=== PATIENT | male | born 1965 | race Caucasian/White ===

== ENCOUNTER → 2017-06-16 18:51 | Outpatient (CLI) | payer MEDICAID, SELFPAY | PROVIDERS: Family Provider Nurse Practitioner; PCP Nurse Practitioner; Visit Provider Otolaryngology | DX: H92.12 Otorrhea, left ear (principal) | CPT/HCPCS: 87070; 87075; 87076; 87077; 87186; 87205 ==

== ENCOUNTER 2017-09-03 13:33 | Emergency (ER) | payer MEDICAID, SELFPAY ==
[2017-09-03 13:34] VITALS: BP 118/80; PULSE 79; RESP 16; TEMP 36.8; O2SAT 94; BMI 24.0
--- NOTE | 2017-09-03 14:16 | VDLE_ITS ---
Reason For Study: LLE pain RIGHT LEFT CFV is compressible, spontaneous, phasic, GSV is normal. competent and demonstrates normal CFV is compressible, spontaneous, phasic, augmentation. competent, and demonstrates normal Procedure augmentation. Exam performed portable in ED. FV is compressible, spontaneous, phasic, The exam was diagnostic. competent and demonstrates normal A preliminary report was called and/or faxed augmentation. to ED & PTs PCP Emmy Vallejo [employer]. POP V is compressible, spontaneous, phasic, competent and demonstrates normal augmentation. T/P Trunk is compressible. PTV is compressible. LT PerV is compressible. Interpretation Summary There is no evidence of left lower extremity deep vein thrombosis. Left greater saphenous vein appears patent and compressible segmentally. Normal flow patterns right common femoral vein. Ordering Physician: Juan Limon Referring Physician: Emmy Vallejo Performed By: Nisha Hay RDCS, RVT
--- NOTE | 2017-09-03 16:13 | ED.DCSUM_ITS ---
- ER Visit Summary Date of Service: 09/03/17 Chief Complaint: Atraumatic left calf pain. History of Present Illness: The patient is a 51 M has medical history of prior TIA and spinal stenosis. Reportedly the patient since Friday has had left calf pain. Denies any fall or trauma. No fever. No swelling. No prior history of DVT or PE. No recent travel, surgery, immobilization or hospitalization. No chest pain or shortness of breath. Worse with walking. Pain is primarily in the calf. Physical Examination: Well-appearing middle-age male. Vital signs are stable afebrile. He does not look septic toxic. He is no acute distress. H EENT exam unremarkable. Neck nontender no lymphadenopathy. Lungs clear to auscultation bilaterally. Heart regular rhythm no murmur. Abdomen soft nontender. Moving all 4 extremities neurovascularly intact. The left calf is tender but there is no ecchymosis or bruising. No swelling. No cords. No edema. Achilles tendon is intact. He has full range of motion to the left hip , knee, ankle and foot. DP pulse is intact and palpable physically. I also did a Doppler and was able to hear the left dorsalis pedis pulse easily. Normal cap refill touch sensation left foot. Dorsi plantar flexion intact. There is no discoloration of the skin of the left lower extremity. Neurologic exam is normal. Test Results: Venous study in the left lower extremity shows no DVT. Emergency Department Course and Treatment: Repeat exam the patient is doing well at 1605. Again has a palpable DP pulse. And there is no change or abnormality of the left lower extremity other than the reproducible calf discomfort. Treatment Plan: Motrin for pain. Call and follow-up his primary care physician or return if something changes or worse. Disposition: Discharge Impression: Left calf pain secondary to muscular skeletal etiology This note was generated with [employer] dictation software. It may contain incorrect words, spelling, and punctuation that were not noted in review of the chart prior to signing ED Disposition - Plan for ED Patient: Chief Complaint: Lower Extremity Injury Referrals: Mercedez Frankel NP-C [Primary Care Provider] -
--- NOTE | 2017-09-03 16:13 | ED.DEP ---
ED Disposition - Plan for ED Patient: Disposition: Home or Assisted Living Chief Complaint: Lower Extremity Injury Instructions: ED Strain Muscle Ext Referrals: Mercedez Frankel NP-C [Primary Care Provider] - Additional Instructions: Motrin for pain. Warm soaks in the bathtub to relax the muscles. Follow-up with your primary care provider or return to ER feeling worse. Your ultrasound today showed no signs of a DVT.
[2017-09-03 16:42] VITALS: BP 111/84; PULSE 79; RESP 18; O2SAT 99
== END 2017-09-03 16:42 | disposition home or self-care (01) ==
PROVIDERS: Emergency Provider Emergency Medicine; Family Provider Nurse Practitioner Adult Health; PCP Nurse Practitioner Adult Health
DX: M79.662 Pain in left lower leg (principal); Z86.73 Personal history of transient ischemic attack (TIA), and cerebral infarction without residual deficits; Z72.0 Tobacco use; Z79.899 Other long term (current) drug therapy
CPT/HCPCS: 93971; 99283

== ENCOUNTER 2018-04-05 14:24 | Observation (INO) | payer MEDICAID, SELFPAY ==
[2018-04-05] VITALS (9 sets, daily range): BP systolic 118–152; BP diastolic 72–91; PULSE 66–84; RESP 12–17; TEMP 36.6–36.8; O2SAT 96–98; BMI 25.2; BMI 24.7
[2018-04-05 14:35] LABS: Bedside Glucose 85 mg/dL (70-110)
--- NOTE | 2018-04-05 14:38 | RAD_ITS ---
STUDY: X-RAY CHEST REASON FOR EXAM: Male, 52 years old. Chest pain TECHNIQUE: Frontal view of the chest COMPARISON: 07/25/2016 FINDINGS: The lungs are clear. There are no pleural effusions. There is no pneumothorax. The heart is normal in size. The visualized osseous structures are within normal limits. RAD/Chest 1 View (Portable) IMPRESSION: No acute thoracic pathology. Electronically Signed: Thien Montes, at 15:36 EST Tel , Service support ,
--- NOTE | 2018-04-05 14:38 | EKG12_ITS ---
Test Reason : NEURO S/SX Blood Pressure : / mmHG Vent. Rate : 077 BPM Atrial Rate : 077 BPM P-R Int : 164 ms QRS Dur : 082 ms QT Int : 370 ms P-R-T Axes : 066 057 062 degrees QTc Int : 418 ms Normal sinus rhythm Normal ECG Confirmed by ANALIA GUNTER, YURIY ([id number]), order editor SIMON AVELAR ([id number]) on 04/07/2018 5:07:46 PM Referred By: UMESH Confirmed By:YURIY HELMS MD
--- NOTE | 2018-04-05 14:39 | CT_ITS ---
STUDY: CT BRAIN WITHOUT CONTRAST REASON FOR EXAM: Male, 52 years old. Right leg weakness, left facial numbness, neurological changes RADIATION DOSAGE (If Supplied By Facility): CTDIvol = ( 44.99 ) mGy, DLP = ( 762.36 ) mGycm TECHNIQUE: Transaxial CT imaging of the brain was performed without administration of intravenous contrast material. Individualized dose optimization techniques were used for this CT. COMPARISON: December 09, 2014 FINDINGS: Ventricles: Normal for patient's age. White matter and Cortex: Normal appearance of the white matter tracts. Normal appearance of the cortex. Stable old lacunar infarct versus perivascular space in the right parietal lobe. Basal ganglia and Thalami: Normal in appearance. Brainstem: Normal in appearance. Cerebellum: Normal in appearance. Vascular: No significant abnormalities. No evidence of acute hemorrhage. No evidence of acute ischemia. No evidence of mass effect. Soft tissues: Unremarkable. Bones: Unremarkable. Sinuses: Unremarkable. Partial opacification of the right mastoid air cells with chronic changes in the surrounding bone. CT/Brain/Head without Contrast IMPRESSION: No acute intracranial abnormalities. 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 Electronically Signed: Gina Navarro MD at 16:16 EST Tel Direct: [phone], Service support ,
--- NOTE | 2018-04-05 14:39 | ED.VISSUMM ---
- ER Visit Summary Date of Service: 04/05/18 Chief Complaint: [] Facial droop slurry speech right arm and leg weakness this morning History of Present Illness: The patient is a 52 M [] history for at least 3 TIAs that cause residual left facial droop that is worse today, also history of lumbar back pain that causes diffuse leg weakness, per the patient and his apparently this morning he had an episode where his right upper extremity lower extremity felt weak and numb he dropped a coffee cup, he also complained of some facial numbness as well he has intermittent complaints like this in the past per the he otherwise was at his baseline she had just completed third shift work and come home to sleep, later on this afternoon he woke her and said the symptoms seem to intensify and he was brought to the hospital, he scheduled to start a job building [employer] tomorrow he denies chest pain abdominal pain no fever no cough normal bowel bladder habits He has not seen a neurologist in some time he indicates the only medication he is on his doxycycline for some type of left ear ailment Physical Examination: [] 148/90 General, no distress resting comfortably HEENT is generally unremarkable, he does have a left facial droop per the part of that droop is old it seems more prominent and he also seems to have a slurred of speech that is not usually present there is very subtle The neck is supple no adenopathy Cardiovascular, regular rate and rhythm Lungs, clear bilateral Abdomen, soft nontender Extremities, no clubbing cyanosis or edema he has intermittent jerking when you move his lower extremities that is baseline for him, he has no motor or sensory weakness, he has chronic sensory deficits in his legs related to lumbar back disease and the believes he has a foot drop involving 1 of his legs, he is able to hold his arms and legs up for the normal counts Neurologic, awake alert answering questions appropriately moving all 4 extremities see above, his NIH would be about 1 or 2 related to the facial droop and the other complaints Test Results: [] Emergency Department Course and Treatment: [] Some of the patient's complaints are chronic some appear to be exacerbated and new all the above screening labs EKG head CT are obtained, EKG shows a sinus rhythm nothing acute His screening labs are all generally unremarkable, we are trying to determine the status of the final CT report, to my review the CT shows nothing acute, the and patient report his last stroke/TIA they believe was at [facility] in 2010 or 2011 but there is no reports that I can access to the computer, his exam remains as above no changes, he indicates again he feels weak in the right arm and leg given all the above and his complaints I have asked the hospitalist see him for further management the final CT report on the chart when it is available and reviewed by the admitting service Treatment Plan: [] Disposition: [] Admit stable Impression: [] Possible stroke, left facial droop right upper and lower extremity weakness history of prior TIA stroke in the past This note was generated with [employer] dictation software. It may contain incorrect words, spelling, and punctuation that were not noted in review of the chart prior to signing ED Disposition - Plan for ED Patient: Chief Complaint: Weakness Referrals: Mercedez Frankel NP-C [Primary Care Provider] -
[2018-04-05] MEDS: 0.9% Normal Saline 1,000 ML 30 ML IV (14:48)
[2018-04-05 15:02] LABS: Absolute Lymphocyte Count 3.19 X10^3/ul (0.83-4.51); Absolute Neutrophil Count 4.8 X10^3/uL (2.0-7.7); Basophil# 0.07 X10^3/uL; Basophil% 0.8 % (0-1); Eosinophil# 0.23 X10^3/uL; Eosinophils% 2.6 % (0-5); Hematocrit 44.7 % (40-54); Hemoglobin 14.6 g/dl (13.0-16.5); Lymphocyte # 3.19 X10^3/ul (4.0); Lymphocyte % 36.2 % (19-41); Mean Corp Hgb Conc 32.7 g/gl (32-36); Mean Corpuscular Hgb 29.6 pg (27.0-32.0); Mean Corpuscular Volume 90.5 fL (80-94); Mean Platelet Vol. 11.5 fl (6.2-12.0); Monocyte# 0.51 X10^3/uL; Monocyte% 5.8 % (0-10); Neutrophil % 54.4 % (47-70); Platelet Count 211 K/mm3 (150-450); RBC Distribution Width CV 14.3 % (11.6-14.6); Red Blood Count 4.94 M/mm3 (4.6-6.2); White Blood Count 8.8 K/mm3 (4.4-11.0)
[2018-04-05 15:04] LABS: POSITIVE COUNT NO; POSITIVE DIFFERENTIAL NO; POSITIVE MORPHOLOGY NO
[2018-04-05 15:19] LABS: Anion Gap 8 (5-15); BUN 6 mg/dL (7-18); BUN/Creat Ratio 7.9 RATIO (10-20); Calcium,Total 8.8 mg/dL (8.5-10.1); Chloride 107 mmol/L (98-107); Creatinine, Serum 0.76 mg/dL (0.70-1.30); EST Glomerular Filtration Rate 115 mL/min (>60); Est Glom Filt Rate - Afr Amer 139 mL/min (>60); Estimated Creatinine Clearance 118.73 ml/min; Glucose 84 mg/dL (74-106); Potassium 4.1 mmol/L (3.5-5.1); Sodium Level 140 mmol/L (136-145)
--- NOTE | 2018-04-05 16:33 | HP.PCM_ITS ---
Problem List (1) CVA (cerebral vascular accident) Status: Suspected Qualifiers: CVA mechanism: unspecified Qualified Code(s): I63.9 - Cerebral infarction, unspecified History of Present Illness Date of Admission: 04/05/18 Chief Complaint: right sided weakness amd left facial droop The patient is a 52 year old M presents with a one day history of right sided weakness and left facial droop that occurred today. He was in a normal state of health previously. No new stressors. Had similar episodes when he was diagnosed with TIA back in 2009. No headache.[] Past Medical History Past Medical History (Chronic Problems): Chronic Problems Primary lateral sclerosis (Chronic) History of TIA (transient ischemic attack) (Chronic) Depression (Chronic) Tobacco use (Chronic) Chronic pain syndrome (Chronic) Medical History: Medical History (Last Updated 04/05/18 @ 16:32 by Francis Silva DO) Cervical vertebral fusion M43.22 Spinal stenosis M48.00 TIA (transient ischemic attack) G45.9 tens unit placment Chronic pain G89.29 Allergies ciprofloxacin [From Cipro] Allergy (Verified 04/05/18 14:26) Hives tree nut Allergy (Verified 04/05/18 14:26) Shortness of breath Home Medications: Ambulatory Orders Medication Instructions Recorded Doxycycline 100 mg PO DAILY 04/05/18 Surgical History: noncontributory, - Psychiatric History: - - Has had prior suicidal ideation Lives: Spouse/ Significant Other Smoking Status: Heavy Smoker (>10/day) Tobacco Use: Cigarettes Alcohol: None Drugs: None - *Family History Maternal History Items: - - No stroke Review of Systems Constitutional: Denies: Anorexia, Chills, Fever Eyes: Denies: Blurred vision, Double vision HEENT: Denies: Head Aches, Sinus Congestion, Sinus Drainage Cardiovascular: Denies: Chest Pain, Palpitations Respiratory: Denies: Cough, Shortness of breath at rest, Sputum production Gastrointestinal: Reports: Abdominal Pain, Diarrhea, Nausea. 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 Denies: Anxiety, Depression Endocrine: Denies: Change in Body Habitus, Heat/ Cold Intolerance Hematologic/ Lymphatic: Denies: Easy Bruising, Easy Bleeding, Hx of blood clot Comment: A 10 point review of systems were negative except as mentioned in the history of present illness and the other review of systems. VTE Information - Inpt Only VTE Present on Admission: No VTE Mechan Device Prophylaxis: None VTE Pharm Prophylaxis ordered?: Yes Patient Problems: Active and Suspected Problems CVA (cerebral vascular accident) (Suspected) - Physical Exam General: Alert, Cooperative, No apparent distress, Well developed, Well nourished HEENT: Atraumatic, PERRLA, EOMI, Normocephalic Oral: Moist Mucosa, - - Appears to be thrush on his tongue. Unable to visualize any thrush in his posterior pharynx over on his palate. Dentures are in place. Neck: No Nodes, Thyroid Normal Size and Texture Lungs: Clear to auscultation, Normal air movement, No rhonchi, No wheeze Cardiovascular: Regular rate, Regular Rhythm, Normal S1, Normal S2, No murmurs Abdomen: Bowel Sounds Present, Soft, Non Tender, Non-Distended Extremities: No edema, No Calf Tenderness Skin: No rashes, No breakdown Musculoskeletal: No Tenderness to Palpation of Joints or Extremities, No Muscle Wasting Neurological: Cranial nerves II-XII grossly intact, Neuro grossly intact, Coordination normal, - - Strength 5 out of 5 in upper extremities and L4-5 in the lower extreme is bilaterally. Psych/Mental Status: Normal Affect, Anxious Vital Signs Temp Pulse Resp BP Pulse Ox 36.6 C 81 12 152/85 H 96 04/05/18 14:25 04/05/18 16:25 04/05/18 16:25 04/05/18 16:25 04/05/18 16:25 Oxygen Delivery Method Room Air Weight: 80 kg Body Mass Index (BMI) 25.2 Laboratory Tests Past 24 Hrs 04/05/18 04/05/18 14:45 14:45 WBC 8.8 RBC 4.94 Hgb 14.6 Hct 44.7 MCV 90.5 MCH 29.6 MCHC 32.7 RDW 14.3 RDW Differential 47.0 H Plt Count 211 MPV 11.5 Immature Gran % (Auto) 0.200 Neut % (Auto) 54.4 Lymph % (Auto) 36.2 [place] % (Auto) 5.8 Eos % (Auto) 2.6 Baso % (Auto) 0.8 Absolute Neuts (auto) 4.8 Absolute Lymphs (auto) 3.19 Total Counted Not Reportable Sodium 140 Potassium 4.1 Chloride 107 Carbon Dioxide 25.0 Anion Gap 8 BUN 6 L Creatinine 0.76 Estim Creat Clear Calc 118.73 Est GFR (MDRD) Af Amer 139 Est GFR (MDRD) Non-Af 115 BUN/Creatinine Ratio 7.9 L Glucose 84 Calcium 8.8 Troponin I < 0.015 POC Glucose 04/05/18 14:31 POC Glucose 85 Clinical Impression(s) from Imaging Studies Chest X-Ray 04/05/18 14:38 IMPRESSION: No acute thoracic pathology. Electronically Signed: Thien Montes, at 15:36 EST Tel , Service support , Brain CT 04/05/18 14:39 IMPRESSION: No acute intracranial abnormalities. 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 Electronically Signed: Gina Navarro MD at 16:16 EST Tel Direct: [phone], Service support , Assessment/Plan 1. Suspected acute stroke Will undergo stroke workup with an MRI of the brain, MRA of the head and neck, 2D echocardiogram, neurology consultation, bedside swallow evaluation, physical and occupational therapy evaluate and treat. He will be started on aspirin empirically Concern is that his exam is inconsistent. Patient is able to demonstrate no left facial droop when he smiles but when not asked to do that his immediately has a left facial droop. Concern is for either conversion disorder psychosomatic disorder or even fictitious. Patient denies any new emotional stressors in his life. I did express to he and his that stroke is will rule out but my concern is that his consistent and then may be another etiology. I do not feel that this is a migraine equivalent as he is having no headache whatsoever at this time. 2. Abdominal pain and diarrhea Is been going on for months. During his patient may be having gastritis or even peptic ulcer disease No red flags at this time I did recommend starting him on PPI therapy. Previously, he was on ranitidine as needed. I recommend doing well with H2 alicia and is having him on daily proton pump inhibitor for now I did recommend outpatient gastroenterology follow-up 3. DVT prophylaxis with Lovenox Code Visit OBSV E&M: 79692 Initial observation care L3
--- NOTE | 2018-04-05 16:50 | ECHOD_ITS ---
Reason For Study: TIA/CVA Procedure This was a 2D Doppler, Color Flow transthoracic echocardiogram. Exam performed portable in patient room. Left Ventricle Normal LV size. Left ventricular systolic function is normal. The estimated ejection fraction is 55 %. Stage 1 diastolic dysfunction. No regional wall motion abnormalities noted. Right Ventricle Normal right ventricle. Normal systolic function. Atria Normal left atrium. Normal right atrium. Mitral Valve Normal mitral valve. Mild (1+) eccentric mitral valve insufficiency. Tricuspid Valve Normal tricuspid valve. Mild (1+) tricuspid valve insufficiency. Aortic Valve Trisinus/trileaflet aortic valve. Pulmonic Valve The pulmonic valve is not well visualized. Great Vessels Normal aortic root. The pulmonary artery is normal size. Normal inferior vena cava. Pericardium/Pleural No pericardial effusion. MMode/2D Measurements & Calculations LVIDd: 5.1 cm IVSd: 0.93 cm Ao root diam: 3.6 cm LVIDs: 3.3 cm LVPWd: 0.99 cm RVDd: 3.5 cm FS: 35.3 % LAV(MOD-bp): 52.1 ml LA A4 area: 16.8 cm2 LA dimension(2D): 3.4 cm LAV(MOD-bp) Indexed: 26.4 ml/m2 LAV(MOD-sp2): 55.9 ml LAV(MOD-sp4): 42.3 ml RA A4 area: 14.3 cm2 Doppler Measurements & Calculations MV E max marcus: 63.3 cm/sec Lat Peak E' Macrus: 14.0 cm/sec Med Peak E' Marcus: 8.0 cm/sec MV A max marcus: 48.0 cm/sec E/E' lat: 4.5 E/E' med: 7.9 MV E/A: 1.3 Ao V2 max: 107.3 cm/sec LV V1 max: 84.0 cm/sec PA V2 max: 100.9 cm/sec Ao max P.6 mmHg LV V1 max P.8 mmHg TR max marcus: 220.7 cm/sec TR max P.5 mmHg Interpretation Summary Normal LV size. Left ventricular systolic function is normal. The estimated ejection fraction is 55 %. Stage 1 diastolic dysfunction. Mild (1+) tricuspid valve insufficiency. Ordering Physician: Francis Silva Referring Physician: Mercedez Pollard Performed By: Nisha Hay RDCS, RVT
[2018-04-05] MEDS: Aspirin 325 MG Tablet PO (18:08)
[2018-04-05] MEDS: Pantoprazole Sodium 40 MG Tablet PO (18:08)
[2018-04-05] MEDS: NYSTATIN 500,000 UNIT/5 ML UDC 500000 UNIT PO ×2 (19:14→21:31)
[2018-04-05] MEDS: Gabapentin 300 MG Capsule PO (21:31)
[2018-04-06] VITALS (11 sets, daily range): BP systolic 110–122; BP diastolic 62–79; PULSE 64–90; RESP 16; TEMP 36.6–36.8; O2SAT 94–96; BMI 24.7
[2018-04-06] MEDS: Enoxaparin 40 MG/0.4 ML Syringe SC (00:40)
[2018-04-06 06:36] LABS: Cholesterol 123 mg/dL (200); High Density Lipoprotein 37 mg/dL; Triglycerides 85 mg/dL; Very Low Density Lipoprotein 17 mg/dL (5-40)
[2018-04-06] MEDS: Aspirin 81 MG TAB.CHEW PO (07:54)
--- NOTE | 2018-04-06 07:59 | MRI_ITS ---
STUDY: MRI BRAIN WITHOUT CONTRAST REASON FOR EXAM: Male, 52 years old. CVA. Right-sided weakness, facial droop. TECHNIQUE: Standardized multiplanar fat and water weighted pulse sequences were obtained. COMPARISON: 10/29/2010, CT brain 04/05/2018. FINDINGS: There is no restricted diffusion or territorial infarct. There is no evidence of mass or hemorrhage. Normal size of the ventricles and extra-axial spaces for the patient's age. Normal white matter tracts of the supratentorial brain. Normal bilateral basal ganglia. Normal thalami. There is no extra-axial fluid accumulation. Normal sella turcica, pituitary gland, infundibular stalk, optic chiasm and hypothalamus. Normal tectal plate and pineal gland. Normal midbrain, [place] and medulla. Normal cerebellum. Normal basal cisterns. The patient is status post right mastoidectomy. Normal bilateral internal auditory canals. No demonstrated orbital abnormality, within the constraints of a routine brain study. Normal visualized paranasal sinuses. There is rightward nasal septal deviation. Normal calvarium and skull base. Normal visualized soft tissue structures. MRI/Brain without Contrast IMPRESSION: 1. No acute process. 2. Nasal septal deviation. 3. Status post right mastoidectomy. Electronically Signed: Renae Coy MD at 16:31 EST Tel , Service support ,
--- NOTE | 2018-04-06 07:59 | MRI_ITS ---
STUDY: MRA NECK WITH AND WITHOUT CONTRAST REASON FOR EXAM: Male, 52 years old. CVA, right-sided weakness, facial droop. TECHNIQUE: 3-D [id number] (TOF) imaging was performed in an 1.5 T MRI scanner. 8 ml of Gadavist was administered for the contrast enhanced images. COMPARISON: None. FINDINGS: RIGHT CAROTID ARTERIES: Normal right common carotid artery (CCA). Normal right common carotid bulb. Normal origin of the right internal carotid (ICA) artery without a significant stenosis. Normal visualized cervical portion of the right internal carotid artery. Normal origin of the right external carotid artery (ECA). LEFT CAROTID ARTERIES: Normal left common carotid artery (CCA). Normal left common carotid bulb. Normal origin of the left internal carotid (ICA) artery without a significant stenosis. Normal visualized cervical portion of the left internal carotid artery. Normal origin of the left external carotid artery (ECA). VERTEBRAL ARTERIES: Normal antegrade flow within the bilateral vertebral artery without a significant stenosis. MRI/MRA Neck WITH and W/O Contrast IMPRESSION: Normal bilateral cervical carotid and vertebral arteries. Electronically Signed: Renae Coy MD at 16:50 EST Tel , Service support ,
--- NOTE | 2018-04-06 08:00 | MRI_ITS ---
STUDY: MRA OF THE HEAD WITHOUT CONTRAST REASON FOR EXAM: Male, 52 years old. CVA right-sided weakness facial droop. TECHNIQUE: 3-D [id number]-[id number] (TOF) imaging was performed with MIPs. The study was performed unenhanced. COMPARISON: 10/29/2010. FINDINGS: Normal bilateral petrous carotid arteries. Normal right cavernous carotid artery with a normal supraclinoid bifurcation. Normal left cavernous carotid artery with a normal supraclinoid bifurcation. Normal right A1 segments of the anterior cerebral artery. Normal left A1 segments of the anterior cerebral artery. Normal intact anterior communicating artery (ACOM). Normal bilateral A2 segments of the anterior cerebral arteries. Normal right M1 and M2 segments of the middle cerebral arteries, with a normal M1 bifurcation. Specifically, no aneurysm is demonstrated in the M1 segment of the right middle cerebral artery. There is minimal ectasia or obliquity of the origin of a proximal M1 branch projecting inferiorly and anteriorly, which may produce the appearance of an aneurysm. Normal left M1 and M2 segments of the middle cerebral arteries, with a normal M1 bifurcation. There is non-visualization of the right posterior communicating artery (PCOM). Normal left posterior communicating artery (PCOM). Normal bilateral vertebral arteries. Normal basilar artery with a normal basilar bifurcation. The visualized bilateral superior cerebellar (SCA) arteries are normal. Normal bilateral P1, P2 and visualized P3 segments of the posterior cerebral arteries. There is no demonstrated aneurysm of the [place]. There is no major vessel occlusion or significant stenosis. MRI/MRA Head ONLY without Contrast IMPRESSION: Essentially normal MRA of the head. No evidence of aneurysm, although there is minimal prominence of the origin of the proximal M1 branch. Electronically Signed: Renae Coy MD at 16:41 EST Tel , Service support ,
[2018-04-06] MEDS: NYSTATIN 500,000 UNIT/5 ML UDC 500000 UNIT PO (09:31)
[2018-04-06] MEDS: Pantoprazole Sodium 40 MG Tablet PO (09:33)
--- NOTE | 2018-04-06 09:34 | NURSING ---
PT/OT here to see pt.
--- NOTE | 2018-04-06 12:38 | CON.PCM_ITS ---
Problem List (1) TIA (transient ischemic attack) Status: Acute Reason for Consult Date of Consultation: 04/06/18 Reason for Consultation: Right sided weakness, facial droop History of Present Illness: The patient is a 52 year old M with PMH TIA (last one around 2009 per ), H/O cervical fusion, low back pain, tobacco abuse, ? H/O PLS admitted with acute onset right sided weakness with facial droop. Per patient he woke up yesterday (04/05/18), was normal but later started having right sided numbness, weakness, dropped coffee mug, also had right facial weakness. The symptoms later resolved and at present per patient he is back to his baseline. Denies any focal motor weakness, sensory loss, dizziness or AGUILAR at present. He does not take any ASA at baseline. Uses cane to ambulate, does drive, denies frequent falls, does not need any assistance for his ADLs. Has chronic neck and low back pain. Denies any speech disturbances or visual disturbances. [] Past Medical History Past Medical History (Chronic Problems): Chronic Problems (Last Updated 04/05/18 @ 16:32 by Francis Silva DO) Chronic pain syndrome (Chronic) Tobacco use (Chronic) Depression (Chronic) History of TIA (transient ischemic attack) (Chronic) Primary lateral sclerosis (Chronic) Medical History: Medical History (Last Updated 04/05/18 @ 16:32 by Francis Silva DO) Cervical vertebral fusion M43.22 Spinal stenosis M48.00 TIA (transient ischemic attack) G45.9 tens unit placment Chronic pain G89.29 Allergies ciprofloxacin [From Cipro] Allergy (Verified 04/05/18 14:26) Hives tree nut Allergy (Verified 04/05/18 14:26) Shortness of breath Home Medications: Ambulatory Orders Medication Instructions Recorded Doxycycline 100 mg PO DAILY 04/05/18 Gabapentin [Neurontin] 300 mg PO QHS 04/05/18 Surgical History: noncontributory, - Psychiatric History: - - Has had prior suicidal ideation Lives: Spouse/ Significant Other Smoking Status: Current every day smoker Tobacco Use: Cigarettes Alcohol: None Drugs: None - *Family History Maternal History Items: - - No stroke Review of Systems Constitutional: Reports: - - complete ROS negative except as documented in HPI Patient Problems: Active and Suspected Problems (Last Updated 04/05/18 @ 16:32 by DANIEL Orellana CVA (cerebral vascular accident) (Suspected) TIA (transient ischemic attack) (Acute) - Physical Exam General: Alert HEENT: Normocephalic Neck: Supple Lungs: Normal air movement Cardiovascular: Normal S1, Normal S2 Abdomen: Bowel Sounds Present Extremities: No cyanosis Neurological: - - consious, awake, CN 2-12 grossly intact, power 5/5 all 4 extremities, no sensory loss, no cerebellar signs, gait deferred, Reflexes + B/L B/S/T/K/A. NIHSS 0 at present, mRS 0 at baseline Psych/Mental Status: Normal Affect Vital Signs Temp Pulse Resp BP Pulse Ox 98.2 F 81 16 120/79 94 04/06/18 12:00 04/06/18 12:00 04/06/18 12:00 04/06/18 12:00 04/06/18 12:00 Oxygen Delivery Method Room Air Weight: 78.1 kg Body Mass Index (BMI) 24.7 Intake and Output for Last 24 Hours 04/04/18 04/05/18 04/06/18 23:59 23:59 23:59 Intake Total 240 / 240 820 / 820 Output Total 800 / 800 Balance 240 / 240 20 / 20 Laboratory Tests Past 24 Hrs 04/05/18 04/05/18 04/05/18 14:45 14:45 14:45 WBC 8.8 RBC 4.94 Hgb 14.6 Hct 44.7 MCV 90.5 MCH 29.6 MCHC 32.7 RDW 14.3 RDW Differential 47.0 H Plt Count 211 MPV 11.5 Immature Gran % (Auto) 0.200 Neut % (Auto) 54.4 Lymph % (Auto) 36.2 [place] % (Auto) 5.8 Eos % (Auto) 2.6 Baso % (Auto) 0.8 Absolute Neuts (auto) 4.8 Absolute Lymphs (auto) 3.19 Total Counted Not Reportable Sodium 140 Potassium 4.1 Chloride 107 Carbon Dioxide 25.0 Anion Gap 8 BUN 6 L Creatinine 0.76 Estim Creat Clear Calc 118.73 Est GFR (MDRD) Af Amer 139 Est GFR (MDRD) Non-Af 115 BUN/Creatinine Ratio 7.9 L Glucose 84 Calcium 8.8 Troponin I < 0.015 Triglycerides Cholesterol LDL Cholesterol VLDL Cholesterol HDL Cholesterol TSH 0.80 04/06/18 05:40 WBC RBC Hgb Hct MCV MCH MCHC RDW RDW Differential Plt Count MPV Immature Gran % (Auto) Neut % (Auto) Lymph % (Auto) [place] % (Auto) Eos % (Auto) Baso % (Auto) Absolute Neuts (auto) Absolute Lymphs (auto) Total Counted Sodium Potassium Chloride Carbon Dioxide Anion Gap BUN Creatinine Estim Creat Clear Calc Est GFR (MDRD) Af Amer Est GFR (MDRD) Non-Af BUN/Creatinine Ratio Glucose Calcium Troponin I Triglycerides 85 Cholesterol 123 LDL Cholesterol 69 VLDL Cholesterol 17 HDL Cholesterol 37 L TSH POC Glucose 04/05/18 14:31 POC Glucose 85 Assessment/Plan All Active Problems (Last Updated 04/05/18 @ 16:32 by Francis Silva DO) TIA (transient ischemic attack) (Acute) The patient is a 52 year old M with PMH TIA (last one around 2009 per ), H/O cervical fusion, low back pain, tobacco abuse, ? H/O PLS admitted with acute onset right sided weakness with facial droop. Per patient he woke up yesterday (04/05/18), was normal but later started having right sided numbness, weakness, dropped coffee mug, also had right facial weakness. The symptoms later resolved and at present per patient he is back to his baseline. Denies any focal motor weakness, sensory loss, dizziness or AGUILAR at present. He does not take any ASA at baseline. Uses cane to ambulate, does drive, denies frequent falls, does not need any assistance for his ADLs. Has chronic neck and low back pain. Denies any speech disturbances or visual disturbances. Impression Probable TIA Plan -CT head on admission reported nothing acute -Check MRI brain w/o contrast, MRA head/neck -ASA 81 mg PO once daily and Plavix 75 mg PO once daily. Dual AP for 3 weeks, then switch to single AP with ASA. Bleeding risks discussed -Lipitor 80 mg PO once daily q hs -Patient counseled to be compliant with medications. -Check TTE -LDL-69, [id number] -Stroke risk factors discussed and stroke education provided -30 day event recorder as outpatient -GI/DVT prophylaxis -PT/OT/ST -Fall precautions -Further medical management per hospitalist -Patient counseled to quit smoking -Follow up with Neurology as outpatient in 3-4 weeks -Please call with questions if any -Thank you for allowing us to participate in patient's care and management Code Visit Inpatient E&M: [id number] Init Hosp L3
--- NOTE | 2018-04-06 13:55 | NURSING ---
Pt resting quietly, denies needs. Call light within reach.
--- NOTE | 2018-04-06 15:24 | NURSING ---
Pt off the unit for MRI.
--- NOTE | 2018-04-06 17:15 | NURSING ---
Pt resting in bed. at bedside. Denies needs.
--- NOTE | 2018-04-06 17:30 | PCM.DC ---
- Discharge Diagnoses Current Active Problems: Current Active and Chronic Problems (Last Updated 04/05/18 @ 16:32 by Francis Silva DO) TIA (transient ischemic attack) (Acute) You will use the following diet at home:: No restrictions Your food should be the consistency of: Regular Your liquids should be the consistency of: Regular/Thin Discharge Activity: Return to Normal Activity Weight Bearing Status: Full weight bearing Additional Instructions: DO NOT SMOKE Allergies/Adverse Reactions: Allergies ciprofloxacin [From Cipro] Allergy (Verified 04/05/18 14:26) Hives tree nut Allergy (Verified 04/05/18 14:26) Shortness of breath Medications to take at Discharge Doxycycline 100 mg PO DAILY 04/05/18 Gabapentin [Neurontin] 300 mg PO QHS 04/05/18 Aspirin [Aspirin, Baby] 81 mg PO DAILY@0800 tab.chew 04/06/18 Clopidogrel Bisulfate [Plavix] 75 mg PO DAILY #20 tab 04/06/18 The following prescriptions were given: Clopidogrel Bisulfate [Plavix] 75 mg PO DAILY #20 tab Primary Care Physician: Mercedez Frankel NP-C [Primary Care Provider] - Please follow up with your Primary Care Physician in: in two weeks Test Results: Test results from this visit will be discussed in further detail at your follow-up appointment, if applicable. Please Follow Up With: Jg Armstrong MD When: in 4 weeks-CALL FOR APPOINTMENT,TELL HIS OFFICE THAT HE SAW YOU IN HOSPITAL
--- NOTE | 2018-04-06 17:35 | DCINST_ITS ---
- Discharge Diagnoses Current Active Problems: Current Active and Chronic Problems (Last Updated 04/05/18 @ 16:32 by Francis Silva DO) TIA (transient ischemic attack) (Acute) You will use the following diet at home:: No restrictions Your food should be the consistency of: Regular Your liquids should be the consistency of: Regular/Thin Discharge Activity: Return to Normal Activity Weight Bearing Status: Full weight bearing Additional Instructions: DO NOT SMOKE Allergies/Adverse Reactions: Allergies ciprofloxacin [From Cipro] Allergy (Verified 04/05/18 14:26) Hives tree nut Allergy (Verified 04/05/18 14:26) Shortness of breath Medications to take at Discharge Doxycycline 100 mg PO DAILY 04/05/18 Gabapentin [Neurontin] 300 mg PO QHS 04/05/18 Aspirin [Aspirin, Baby] 81 mg PO DAILY@0800 tab.chew 04/06/18 Clopidogrel Bisulfate [Plavix] 75 mg PO DAILY #20 tab 04/06/18 The following prescriptions were given: Clopidogrel Bisulfate [Plavix] 75 mg PO DAILY #20 tab Primary Care Physician: Mercedez Frankel NP-C [Primary Care Provider] - Please follow up with your Primary Care Physician in: in two weeks Test Results: Test results from this visit will be discussed in further detail at your follow- up appointment, if applicable. Please Follow Up With: Jg Armstrong MD When: in 4 weeks-CALL FOR APPOINTMENT,TELL HIS OFFICE THAT HE SAW YOU IN HOSPITAL
--- NOTE | 2018-04-06 17:45 | NURSING ---
Per Dr. Cano pt may be discharged, to F/U with Neurology and pt started on Plavix 75mg daily.
[2018-04-06] MEDS: Clopidogrel Bisulfate 75 MG Tablet PO (17:52)
--- NOTE | 2018-04-07 08:34 | DS.PCM_ITS ---
Discharge Date and Diagnosis Date of Admission: 04/05/18 Date of Discharge: 04/06/18 - Primary Discharge Diagnosis #1 transient ischemic attack #2 chronic pain syndrome #3 noncompliance with medical regimen #4 chronic pain syndrome secondary to spinal stenosis - Secondary Discharge Diagnosis Chronic Problems (Last Updated 04/05/18 @ 16:32 by Francis Silva DO) Chronic pain syndrome (Chronic) Tobacco use (Chronic) Depression (Chronic) History of TIA (transient ischemic attack) (Chronic) Primary lateral sclerosis (Chronic) Hospital Course and Treatment Operations: appendectomy Procedures: 2-D Echocardiogram Summary of Care Provided: The patient is a 52 year old M was seen in the emergency room at [facility] with chief complaint of left facial droop and right arm and leg weakness. Patient had a history of TIAs in the past. Workup in the emergency room including a CT of the head and labs were all unremarkable. Patient's NIH stroke score was 0. Patient was placed in observation status on PCU, he was seen in consultation by neurology, he underwent imaging studies which did not show an acute stroke. Patient had stopped aspirin at home, reason unknown, it was recommended that the patient resume aspirin with Plavix for 21 days and then drop the Plavix and continue on aspirin. Patient's echocardiogram was unremarkable. Lipid profile showed a low LDL cholesterol. On 04/06/18, patient was seen and examined: On examination he appeared in good health and spirits. Vital signs as documented. Skin warm and dry and without overt rashes. Neck without JVD. Lungs clear. Heart exam notable for regular rhythm, normal sounds and absence of murmurs, rubs or gallops. Abdomen unremarkable and without evidence of organomegaly, masses, or abdominal aortic enlargement. Extremities nonedematous. Neuro: Cranial nerves II through XII are grossly intact, no focal motor deficits were noted, sensation to light touch and pinprick intact. Psych: Patient is alert and oriented x3, he does not appear anxious or depressed Patient was seen and examined on 04/06/18 and felt to be in stable condition for discharge home. Working diagnosis was TIA. Patient was cautioned to stop smoking and take his medications as directed. - Physical Exam Vital Signs Temp Pulse Resp BP Pulse Ox 97.8 F 74 16 117/79 94 04/06/18 16:00 04/06/18 16:53 04/06/18 16:00 04/06/18 16:00 04/06/18 16:00 Oxygen Delivery Method Room Air Weight: 78.1 kg Body Mass Index (BMI) 24.7 Intake and Output for Last 24 Hours 04/05/18 04/06/18 04/07/18 23:59 23:59 23:59 Intake Total 240 / 240 1180 / 1180 Output Total 1150 / 1150 Balance 240 / 240 30 Discharge Activity: Return to Normal Activity Weight Bearing Status: Full weight bearing Home Medications: Medications to take at Discharge Doxycycline 100 mg PO DAILY 04/05/18 Gabapentin [Neurontin] 300 mg PO QHS 04/05/18 Aspirin [Aspirin, Baby] 81 mg PO DAILY@0800 tab.chew 04/06/18 Clopidogrel Bisulfate [Plavix] 75 mg PO DAILY #20 tab 04/06/18 Following Prescrptions Were Given to Patient: Clopidogrel Bisulfate [Plavix] 75 mg PO DAILY #20 tab Primary Care Physician: Mercedez Frankel NP-C [Primary Care Provider] - Please follow up with your Primary Care Physician in: in two weeks Please Follow Up With: Jg Armstrong MD When: in 4 weeks-CALL FOR APPOINTMENT,TELL HIS OFFICE THAT HE SAW YOU IN HOSPITAL Disposition: Home Minutes spent on discharge:: 30 Patient Condition:: Stable Medical Necessity - Tobacco Use Smoking Status: Current every day smoker Tobacco Use: Cigarettes Meaningful Use Info Meaningful Use Diagnoses (Choose all that apply): None applicable Code Visit OBSV E&M: 44386 Observation care discharge
== END 2018-04-06 17:31 | disposition home or self-care (01) ==
LOC: ED 16:04 → PCU 16:37
PROVIDERS: Emergency Provider Emergency Medicine; Family Provider Nurse Practitioner Adult Health; PCP Nurse Practitioner Adult Health; Visit Provider Internal Medicine
DX: G45.9 Transient cerebral ischemic attack, unspecified (principal); G89.4 Chronic pain syndrome; Z91.14 Patient's other noncompliance with medication regimen; M48.00 Spinal stenosis, site unspecified; G12.23 Primary lateral sclerosis; F17.210 Nicotine dependence, cigarettes, uncomplicated; I69.892 Facial weakness following other cerebrovascular disease; I69.851 Hemiplegia and hemiparesis following other cerebrovascular disease affecting right dominant side; Z79.899 Other long term (current) drug therapy
CPT/HCPCS: 36415; 70450; 70544; 70549; 70551; 71045; 80048; 80061; 82962; 84443; 84484; 85025; 93005; 93306; 96372; 97162; 97165; 97802; 99218; 99283; 99406; A9585; J7030; G0378

== ENCOUNTER → 2018-08-19 12:57 | Outpatient (REF) | payer MEDICAID, SELFPAY ==
[2018-08-10 09:09] VITALS: BMI 25.2
== END ==
LOC: CVS 12:57
PROVIDERS: Family Provider Nurse Practitioner Adult Health; PCP Nurse Practitioner Adult Health; Referring Provider Clinical Nurse Specialist Acute Care; Visit Provider Clinical Nurse Specialist Acute Care
DX: G47.33 Obstructive sleep apnea (adult) (pediatric) (principal); Z86.73 Personal history of transient ischemic attack (TIA), and cerebral infarction without residual deficits
CPT/HCPCS: 93270